=== PATIENT | male | born 1935 | race Hispanic/Latino ===

== ENCOUNTER 2017-08-08 11:02 | Emergency (ER) | payer OTHER ==
[~2017-08-08] VITALS: Ht 167.6 cm; Wt 83.9 kg
[2017-08-08 11:10] VITALS: BP 148/90
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
[2017-08-08] MEDS ORDERED: Acetaminophen 500mg (ES) tab ORAL ONE (11:15)
--- NOTE | 2017-08-08 12:42 | Diagnostic Imaging Report ---
Indication: Back pain. Trauma Technique: Continuous helical transaxial imaging of the lumbar spine was obtained from the lung bases to the pubic symphysis. No IV contrast was administered. Coronal 2-D reformats were also obtained. Study obtained in a Siemens sensation [address] Total Dose length Product (DLP): 651.[address] Dose Index Volume (CTDIvol): 19.81 mGy Comparison: None Findings: There is no evidence of an acute fracture or malalignment. Bones are osteopenic. Degenerative changes are moderate to severe with vacuum discs, narrowing, endplate and facet spur formation. There is an anterolisthesis that is mild at L4-5. Mild retrolistheses noted at L2-3 and L3-4. Hypertrophied facets noted at multiple levels. Multilevel neural foraminal stenosis also noted. Aorta is moderately calcified. Other osseous structures appear intact. IMPRESSION: No acute fracture identified. Degenerative changes of the lumbar spine as described above. Atherosclerotic vascular disease The CT scanner at [facility] is accredited by the [employer] and the scans are performed using dose optimization techniques as appropriate to a performed exam including Automatic Exposure control.
[2017-08-08] MEDS ORDERED: NORCO 5-325 TA1 EACH ORAL (13:09)
[2017-08-08 13:22] VITALS: BP 148/90
== END 2017-08-08 13:22 | disposition home or self-care (01) ==
LOC: EDBD 11:02 → EMR 11:50
DX: M54.9 Dorsalgia, unspecified (principal); V43.52XA Car driver injured in collision with other type car in traffic accident, initial encounter; Y92.410 Unspecified street and highway as the place of occurrence of the external cause; I10 Essential (primary) hypertension; E11.9 Type 2 diabetes mellitus without complications; M47.816 Spondylosis without myelopathy or radiculopathy, lumbar region; M48.061 Spinal stenosis, lumbar region without neurogenic claudication; M85.88 Other specified disorders of bone density and structure, other site
CPT/HCPCS: 72131; 99284